=== PATIENT | male | born 1965 | race Hispanic/Latino ===

== ENCOUNTER 2022-10-19 11:11 | Emergency (ER) | payer BC ==
[2022-10-19] MEDS ORDERED: Lidocaine 1% w/Epinephrine 1:100K 20 ML VIAL ONE (15:25)
== END 2022-10-19 16:33 | disposition home or self-care (01) ==
LOC: ERS 11:11
DX: L02.412 Cutaneous abscess of left axilla (principal); L03.112 Cellulitis of left axilla
CPT/HCPCS: 10060